=== PATIENT | male | born 1930 | race African-American/Black ===

== ENCOUNTER 2016-09-21 11:09 | Emergency (ER) | payer OTHER ==
--- NOTE | 2016-09-21 11:22 | ED EKG INTERP ---
EKG Interpretation - EKG Time of EKG reading by physician:: 11:16 EKG Read and Signed by:: Armando Noland EKG Interpretation (*Must complete 3 of following elements*): Abnormal Rate: 46 Rhythm: sinus gloria Longton: normal QRS: normal Attestation - Scribe Verification/Attestation Scribe:: Imtiaz Rankin Acting as Scribe for:: Armando Noland Scribe documention review:: This chart was documented by a scribe and accurately reflects the service the provider performed and the decisions made by the provider.
[2016-09-21] MEDS ORDERED: G.I. COCKTAIL PO ONE (11:27)
[2016-09-21] MEDS ORDERED: ASPIRIN PO ONE (11:30)
--- NOTE | 2016-09-21 11:33 | PROVIDER DOCUMENTATION ---
HPI-Chest Pain - General Chief Complaint: Chest Pain Stated Complaint: CHEST PAIN/HIGH BLOOD PRESSURE Time Seen by Provider: 09/21/16 11:11 Source: patient, family Allergies/Adverse Reactions: Patient Allergies Allergy/AdvReac Type Severity Reaction Status Date / Time No Known Allergies Allergy Verified 09/21/16 13:00 Home Medications: Home Medication List Medication Instructions Recorded Confirmed Last Taken Type Azithromycin [Zithromax Z-Darryl] 250 mg PO DIRECTED #1 pkg 09/21/16 Unknown Rx Methylprednisolone [Medrol Dosepak] 4 mg PO DIRECTED #1 package 09/21/16 Unknown Rx Omeprazole 20 mg PO DAILY #14 capsule. 09/21/16 Unknown Rx - History of Present Illness-CP Nature of Presenting Problem: 86 yo BF presented via ambulance iwht onset of CP this morning before breakfast. Sudden onset of moderate SSCP this morning without diaphoresis, palpitations, syncope, SOB. Denies f/c, cough. Location: reports: substernal, central, epigastric Chest Pain Radiation: reports: no radiation Quality of Pain: reports: aching Severity in ED: moderate Onset/Duration: 4-6 hours ago Timing: still present Context/Activities at Onset: reports: none Modifying Factors: improves with: nothing Associated Symptoms: reports: denies symptoms. denies: diaphoresis, dizziness, edema, fever/chills, heartburn, nausea, shortness of breath, syncope, vomiting Prior Chest Pain/Cardiac Workup: reports: no prior chest pain Similar Symptoms Previously?: No Recently Seen Here or By Another Healthcare Provider: No Review of Systems - Adult - REVIEW OF SYSTEMS - ADULT Constitutional: reports: no symptoms reported Eyes: reports: no symptoms reported Ears, Nose, Mouth & Throat: reports: no symptoms reported Cardiovascular: reports: see HPI Respiratory: reports: no symptoms reported Gastrointestinal: reports: no symptoms reported Genitourinary: reports: no symptoms reported Musculoskeletal: reports: no symptoms reported Integumentary: reports: no symptoms reported Neurological: reports: no symptoms reported Psychiatric: reports: no symptoms reported Endocrine: reports: no symptoms reported Hematologic/Lymphatic: reports: no symptoms reported Allergic/Immunologic: reports: no symptoms reported All Other Systems: Reviewed and Negative Past History - Adult - PAST MEDICAL HISTORY-ADULT Review of Records: reports: Old Records Reviewed, Nursing Assessment Review, Medications Reviewed, Social history reviewed & non-contributory. Cardiovascular: reports: HTN Respiratory: reports: denies history Gastrointestinal: reports: denies history Genitourinary: reports: denies history Musculoskeletal: reports: denies history Neurological: reports: denies history Psychiatric: reports: denies history Endocrine/Immune: reports: denies history - FAMILY HISTORY Family History: reviewed, not pertinent - SOCIAL HISTORY Smoking: denies, quit greater than 1 year Substance Use: none/never Alcohol Use Frequency: never Living Situation: family Physical Exam-General - PHYSICAL EXAM-ADULT Initial Vital Signs Reviewed: Yes - CONSTITUTIONAL General Appearance: appears well, alert, no apparent distress - EYES Eyes: PERRL/EOMI - HEAD, EARS, NOSE, MOUTH & THROAT HENMT: normocephalic/atraumatic, moist mucous membranes - NECK Neck: non-tender - RESPIRATORY Respiratory: chest non-tender, rhonchi (RLL, maybe RML), wheezing - CARDIOVASCULAR Cardiovascular: normal peripheral pulses, regular rate, rhythm, no edema - GASTROINTESTINAL (ABDOMEN) Abdominal Exam: non tender, soft - MUSCULOSKELETAL Back Exam: no CVA tenderness, no vertebral tenderness Extremity: no calf tenderness, pedal edema - SKIN Integumentary: normal color, other (multiple SK) - NEUROLOGIC Neurologic: grossly normal - PSYCHIATRIC Psych/Mental Status: normal mood/affect, normal thought content, normal thought process, oriented x 3 Progress - PLAN OF CARE/RESULTS Progress/Plan/Lab Results: Vital Signs Temp Pulse Resp BP Pulse Ox 09/21/16 13:09 62 13 176/69 99 09/21/16 11:22 57 L 22 171/84 98 09/21/16 11:13 98.2 F 51 L 19 172/79 97 No Known Allergies Allergy (Verified 09/21/16 13:00) Home Meds Unobtainable 09/21/16 Laboratory 09/21/16 09/21/16 09/21/16 11:45 11:45 11:45 WBC RBC Hgb Hct MCV MCH MCHC RDW Std Deviation Plt Count MPV Immature Gran % (Auto) Neut % (Auto) Lymph % (Auto) Rabun % (Auto) Eos % (Auto) Baso % (Auto) Immature Gran # (Auto) Neut # (Auto) Lymph # (Auto) Rabun # (Auto) Eos # (Auto) Baso # (Auto) D-Dimer Sodium 134 L Potassium 4.6 Chloride 98 Carbon Dioxide 23 L Anion Gap 13 BUN 13 Creatinine 1.0 Estimated GFR/1.73 m2 > 60 BUN/Creatinine Ratio 13 Glucose 173 H Calculated Osmolality 272 Calcium 10.0 Total Bilirubin 0.58 AST 69 H ALT 76 H Alkaline Phosphatase 71 Creatine Kinase 209 H Creatine Kinase Index 1.4 CK-MB (CK-2) 3.03 Troponin T < 0.010 Dyg-A-Wrlxiirelsv Pept 36 Total Protein 7.5 Albumin 3.9 Globulin 3.6 Albumin/Globulin Ratio 1.1 09/21/16 09/21/16 11:45 11:45 WBC 10.86 H RBC 4.93 Hgb 15.0 Hct 45.1 MCV 91.5 MCH 30.4 MCHC 33.3 RDW Std Deviation 13.9 Plt Count 201 MPV 11.4 H Immature Gran % (Auto) 0.2 Neut % (Auto) 81.9 H Lymph % (Auto) 12.2 L Rabun % (Auto) 5.2 Eos % (Auto) 0.3 Baso % (Auto) 0.2 Immature Gran # (Auto) 0.02 Neut # (Auto) 8.89 H Lymph # (Auto) 1.33 Rabun # (Auto) 0.57 Eos # (Auto) 0.03 Baso # (Auto) 0.02 D-Dimer 0.66 H Sodium Potassium Chloride Carbon Dioxide Anion Gap BUN Creatinine Estimated GFR/1.73 m2 BUN/Creatinine Ratio Glucose Calculated Osmolality Calcium Total Bilirubin AST ALT Alkaline Phosphatase Creatine Kinase Creatine Kinase Index CK-MB (CK-2) Troponin T Zay-Q-Zogldqjzxul Pept Total Protein Albumin Globulin Albumin/Globulin Ratio 1425 Discussed with family and patient. Results explained. Although we did not find x-ray evidence of infection, his lung findings were suggestive of bronchitis. They requested something for gas, and I gave them the names of OTC meds. After GI cocktail and he was able to eat, he felt better. Will also include omeprazole. Family happy and agreed with discharge plan. Also at this time the patient said his pain was actually more in his upper abdoment. He felt it was gas. - CT/MRI 1 CT Study: Thorax Impression: Normal Departure - Departure Time of Disposition Order: 14:46 DIAGNOSIS: Epigastric pain Acute bronchitis Qualifiers: Bronchitis organism: other organism Qualified Code(s): J20.8 - Acute bronchitis due to other specified organisms Disposition: HOME 01 Certified Medical Emergency: Emergent Condition: Stable Additional Instructions: Follow up with Dr. Galeana next week. Note blood sugar. Di-gel, Gaviscon, Mylanta, Phazyme, Gas-X recommended to patient famil Prescriptions: Methylprednisolone [Medrol Dosepak] 4 mg PO DIRECTED #1 package Omeprazole 20 mg PO DAILY #14 capsule. Azithromycin [Zithromax Z-Darryl] 250 mg PO DIRECTED #1 pkg Referrals: Get Galeana MD [Primary Care Provider] - Instructions: Heartburn, Acute Bronchitis
--- NOTE | 2016-09-21 11:55 | EKG Report ---
Test Performed on : 09/21/2016 11:16:27 AM Test Reason : chest pain Blood Pressure : / mmHG Vent. Rate : 046 BPM Atrial Rate : 046 BPM P-R Int : 156 ms QRS Dur : 084 ms QT Int : 446 ms P-R-T Axes : 061 022 032 degrees QTc Int : 390 ms Sinus bradycardia. Otherwise normal ECG When compared with ECG of 28-APR-2016 03:48, Vent. rate has decreased BY 23 BPM QT has shortened Unconfirmed Result
[2016-09-21 12:10] LABS: MANUAL DIFF NEEDED? NO
[2016-09-21 12:16] LABS: BASO% 0.2 % (0.0-0.8); EOS# 0.03 X1000 (0.0-0.7); EOS% 0.3 % (0.0-10.0); HEMATOCRIT 45.1 % (42.0-52.0); IMM GRAN# 0.02 X1000 (0.0-0.04); IMM GRAN% 0.2 % (0.0-0.5); LYMPH# 1.33 X1000 (1.2-3.4); LYMPH% 12.2 % (20.5-51.1); MCH 30.4 PG (27-31); MCHC 33.3 g/dL (33-37); MCV 91.5 FL (81-99); MONO# 0.57 X1000 (0.11-0.59); MONO% 5.2 % (1.7-9.3); MPV 11.4 FL (7.4-10.4); NEUT% 81.9 % (42.2-75.2); PLT 201 X1000 (130-400); RBC 4.93 XMIL (4.7-6.1)
[2016-09-21 12:34] LABS: AGAP 13; ALBUMIN 3.9 g/dL (3.5-5.0); ALKALINE PHOSPHATASE 71 U/L (32-122); BUN 13 mg/dL (8-22); CHLORIDE 98 mmol/L (98-107); COSMO 272; GOT 69 U/L (10-34); GPT 76 U/L (10-44); POTASSIUM 4.6 mmol/L (3.5-5.1); SODIUM 134 mmol/L (136-145); TCO2 23 mmol/L (25-35); TOTAL BILIRUBIN 0.58 mg/dL (0.20-1.00); TOTAL PROTEIN 7.5 g/dL (6.3-8.3)
[2016-09-21 12:37] LABS: CK PROFILE 209 U/L (24-204)
[2016-09-21 13:14] LABS: CK INDEX 1.4 (0.0-2.5); CK-MB 3.03 ng/mL (0.0-5.0)
--- NOTE | 2016-09-21 13:27 | Diag Imaging Result Document ---
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 This was apparently also present on 10/30/2014. Otherwise, there has been no significant change in the appearance of the chest. IMPRESSION: Stable chest.
--- NOTE | 2016-09-21 16:26 | Diag Imaging Result Document ---
PROCEDURE NAME: ANGIOGRAM/PULMONARY ARTERIES - 09/21/2016 CT OF THE CHEST WITH INTRAVENOUS CONTRAST AND CLARITY: FINDINGS: There is no evidence of filling defects in the pulmonary arteries. There are some coronary calcifications. The aorta is not distended or dissected in appearance. There are no abnormal fluid collections. There is no evidence of significant adenopathy. There is no evidence of acute pulmonary parenchymal disease. There is a calcified granuloma in the right middle lobe. IMPRESSION: No evidence of acute disease.
[2016-09-21 17:06] VITALS: BP 178/92
== END 2016-09-21 17:04 | disposition home or self-care (01) ==
LOC: EDBD → ED 11:09
DX: J20.8 Acute bronchitis due to other specified organisms (principal); R10.13 Epigastric pain; R07.2 Precordial pain; I10 Essential (primary) hypertension; Z87.891 Personal history of nicotine dependence; R06.2 Wheezing
CPT/HCPCS: 71020; 71275; 80053; 82550; 82553; 83880; 84484; 85025; 85379; 93005; Q9967

== ENCOUNTER 2018-12-09 14:04 | Inpatient (IN) ==
[2018-12-09] MEDS ORDERED: DESYREL PO PRN (17:30)
[2018-12-09] MEDS: LEVAQUIN 750 MG/D5W 750 MG/150 ML IVPB IV SCH (18:02)
[2018-12-09 18:27] LABS: URINE SOURCE CATH
[2018-12-09 18:33] LABS: BILIRUBIN URINE NEGATIVE (NEGATIVE); BLOOD URINE TRACE (NEGATIVE); COLOR YELLOW; GLUCOSE URINE NEGATIVE (NEGATIVE); KETONE URINE NEGATIVE (NEGATIVE); LEUKOCYTES URINE LARGE (NEGATIVE); NITRITE URINE NEGATIVE (NEGATIVE); PH URINE 5.5; PROTEIN URINE 70 mg/dL (NEGATIVE); SP GRAVITY URINE 1.019; TURBIDITY URINE HAZY (CLEAR); UROBILINOGEN URINE 4 mg/dL (NORMAL)
[2018-12-09 18:34] LABS: UR EPITHELIAL CELLS <10 /HPF (<10); URINE BACTERIA 4+ /HPF; URINE RBC <10 /HPF (<10); URINE WBC TNTC /HPF (<10)
[2018-12-09] MEDS: POTASSIUM CHLORIDE 10 MEQ in 1/2 NS 1,000 ML IV SCH (18:50)
[2018-12-09] MEDS: CARDIZEM PO SCH (20:58)
[2018-12-09] MEDS: ARICEPT PO SCH (20:58)
[2018-12-09] MEDS: DEPAKOTE PO SCH (20:58)
[2018-12-09] MEDS: RISPERDAL PO SCH (20:58)
--- NOTE | 2018-12-09 21:14 | HISTORY AND PHYSICAL ---
HISTORY OF PRESENT ILLNESS: Mr. Weeks, who is a known case of dementia, hypertension, hypothyroidism, and maturity-onset diabetes, was admitted with intermittent high fever. This afternoon, he spiked about 102.5 degree temperature at the [facility], and he has been very drowsy, very difficult to manage. Hence, we decided to admit him. He has dementia with behavioral changes. Recently, he was sent to psychiatric hospital in [place] and was treated for about 7 days for behavioral changes. After he came back, he has been very drowsy, and he is not running any heavy temperature. Once, he was found on the floor. OTHER HISTORY: Other details of personal, past, and family history are noncontributory. ALLERGIES: He is not allergic to medication. SOCIAL HISTORY: He is not a smoker, does not drink. REVIEW OF SYSTEMS: Not available at the present time. PHYSICAL EXAMINATION: GENERAL: At present, he is very stuporous. VITAL SIGNS: Temperature 99.5 degrees Fahrenheit, pulse 50 per minute, respiratory rate 20 per minute, blood pressure 159/50. HEENT: Head normocephalic. Pupils PERRLA. Fundus examination could not be done. Neck supple. JVP normal. ENT examination unremarkable. There is no evidence of lymphadenopathy, thyroid enlargement, pedal edema, calf tenderness, anemia, cyanosis, or clubbing. Pedal pulses well felt. BREAST EXAM: Normal. CHEST: Normal inspection. LUNGS: Clear on auscultation. HEART: PMI in the normal position. Heart sounds normal. No murmur, gallop, or rub noted. ABDOMEN: Nondistended. Hernial orifices normal. No guarding, rigidity, free fluid, masses, or organomegaly. Bowel sounds normal. RECTAL: Deferred. CENTRAL NERVOUS SYSTEM: Higher functions: The patient is stuporous. Cranial nerves: Grossly normal. Motor and sensory system examination reveals normal tone. He moves his extremities. Deep tendon reflexes sluggish. Plantars downgoing. Skull and spine examination normal for age. No neck stiffness noted. No cerebellar signs. LOCOMOTOR: Unremarkable. SKIN: Unremarkable. CLINICAL IMPRESSION: High fever. The patient is obtunded, partly because of dementia, partly because of medications. PLAN: Get the blood cultures and appropriate urine culture and then start antibiotics. cc: Get Galeana MD
[2018-12-09] MEDS: PATIENT'S OWN MED PO SCH (21:48)
[2018-12-10] MEDS: SYNTHROID PO SCH (06:31)
[2018-12-10] MEDS: POTASSIUM CHLORIDE 10 MEQ in 1/2 NS 1,000 ML IV SCH ×2 (06:32→09:00)
[2018-12-10] MEDS: TYLENOL PO PRN ×2 (06:57→22:33)
[2018-12-10 07:39] LABS: BASO# 0.02 X1000 (0.0-0.2); BASO% 0.2 % (0.0-0.8); EOS# 0.24 X1000 (0.0-0.7); EOS% 2.1 % (0.0-10.0); HEMATOCRIT 36.6 % (42.0-52.0); HEMOGLOBIN 11.5 g/dL (14.0-18.0); LYMPH# 0.82 X1000 (1.2-3.4); LYMPH% 7.3 % (20.5-51.1); MCH 30.7 PG (27-31); MCHC 31.4 g/dL (33-37); MCV 97.9 FL (81-99); MONO# 1.59 X1000 (0.11-0.59); MONO% 14.1 % (1.7-9.3); MPV 10.9 FL (7.4-10.4); NEUT# 8.61 X1000 (1.4-6.5); NEUT% 76.3 % (42.2-75.2); PLT 188 X1000 (130-400); RBC 3.74 XMIL (4.7-6.1); RDW 14.2 % (11.5-14.5); WBC 11.28 X1000 (4.8-10.8)
[2018-12-10] MEDS: VITAMIN B-12 SL SCH (07:59)
[2018-12-10] MEDS: RISPERDAL PO SCH ×2 (07:59→22:33)
[2018-12-10] MEDS: ASPIRIN EC PO SCH (07:59)
[2018-12-10] MEDS: KLOR-CON PO SCH (07:59)
[2018-12-10] MEDS: DEPAKOTE PO SCH ×2 (07:59→22:33)
[2018-12-10] MEDS: CARDIZEM PO SCH ×2 (07:59→22:33)
[2018-12-10] MEDS: PATIENT'S OWN MED PO SCH (08:00)
[2018-12-10 08:01] LABS: AGAP 9; ALB/GLOB RATIO 0.7; ALBUMIN 2.9 g/dL (3.5-5.0); ALKALINE PHOSPHATASE 61 U/L (32-122); BUN 25 mg/dL (8-22); CALCIUM 9.6 mg/dL (8.8-10.2); CHLORIDE 104 mmol/L (98-107); COSMO 281; ESTIMATED GFR > 60; GLUCOSE 118 mg/dL (70-104); GOT 19 U/L (10-34); GPT 17 U/L (10-44); POTASSIUM 4.6 mmol/L (3.5-5.1); SODIUM 138 mmol/L (136-145); TCO2 25 mmol/L (25-35); TOTAL BILIRUBIN 0.59 mg/dL (0.20-1.00)
--- NOTE | 2018-12-10 08:07 | EKG Report ---
Test Performed on : 12/10/2018 06:12:09 AM Test Reason : CP Blood Pressure : / mmHG Vent. Rate : 066 BPM Atrial Rate : 066 BPM P-R Int : 144 ms QRS Dur : 084 ms QT Int : 404 ms P-R-T Axes : 068 039 046 degrees QTc Int : 423 ms Normal sinus rhythm. Possible Left atrial enlargement Left ventricular hypertrophy Abnormal ECG When compared with ECG of 24-SEP-2018 12:05, aberrant conduction. is no longer present QT has shortened Confirmed by Benedict MCKENZIE, Hans Victor ([id number]) on 12/10/2018 10:23:42 AM
--- NOTE | 2018-12-10 09:37 | PROGRESS NOTE ---
DATE: 12/10/2018 Mr. Yeh has some leukocytosis. Seems like he has a urinary tract infection. He had 100.5 degree fever yesterday. Overall condition is improving. He is more alert. He is eating by oral. We will continue with the current management. -0 cc: Get Galeana MD
--- NOTE | 2018-12-10 11:34 | Diag Imaging Result Doc PS360 ---
EXAM: CHEST-2 VIEWS INDICATION: fever TECHNIQUE: 2 views COMPARISON: 09/24/2018 FINDINGS: There is mild elevation of the right hemidiaphragm. The lungs are grossly clear. There is no discrete pleural fluid collection or pneumothorax. The cardiac silhouette is borderline prominent but stable. Central vasculature is unremarkable. Borderline prominent heart. No definite acute pathology by plain radiograph. IMPRESSION: No evidence of acute pathology by plain radiograph. Electronically signed by Kenneth Cortez 12/10/2018 11:32 AM
[2018-12-10] MEDS: LEVAQUIN 750 MG/D5W 750 MG/150 ML IVPB IV SCH (16:38)
[2018-12-10] MEDS: ARICEPT PO SCH (22:33)
[2018-12-11] MEDS: POTASSIUM CHLORIDE 10 MEQ in 1/2 NS 1,000 ML IV SCH ×2 (04:11→17:37)
[2018-12-11] MEDS: PATIENT'S OWN MED PO SCH ×3 (04:11→21:58)
[2018-12-11] MEDS: SYNTHROID PO SCH (06:41)
[2018-12-11] MEDS: TYLENOL PO PRN (06:41)
[2018-12-11] MEDS: DEPAKOTE PO SCH ×2 (08:21→21:57)
[2018-12-11] MEDS: ASPIRIN EC PO SCH (08:21)
[2018-12-11] MEDS: RISPERDAL PO SCH ×2 (08:21→21:56)
[2018-12-11] MEDS: CARDIZEM PO SCH ×2 (08:22→21:56)
[2018-12-11] MEDS: KLOR-CON PO SCH (08:22)
[2018-12-11] MEDS: VITAMIN B-12 SL SCH (08:22)
--- NOTE | 2018-12-11 11:21 | PROGRESS NOTE ---
DATE: 12/11/2018 Mr. Yeh is afebrile. Yesterday, he had about a 100 degree temperature. He has a urinary tract infection, with gram-negative rods. Chest x-ray was unremarkable. It looks like he is somewhat depressed today. He did not eat today. Overall condition is otherwise unchanged. He has intermittent dementia. -0 cc: Get Galeana MD
[2018-12-11] MEDS: LEVAQUIN 750 MG/D5W 750 MG/150 ML IVPB IV SCH (17:36)
[2018-12-11] MEDS: ARICEPT PO SCH (21:57)
[2018-12-12] MEDS: SYNTHROID PO SCH (06:21)
[2018-12-12] MEDS: POTASSIUM CHLORIDE 10 MEQ in 1/2 NS 1,000 ML IV SCH (06:24)
[2018-12-12] MEDS: CARDIZEM PO SCH (08:13)
[2018-12-12] MEDS: KLOR-CON PO SCH (08:13)
[2018-12-12] MEDS: VITAMIN B-12 SL SCH (08:13)
[2018-12-12] MEDS: ASPIRIN EC PO SCH (08:13)
[2018-12-12] MEDS: DEPAKOTE PO SCH (08:13)
[2018-12-12] MEDS: RISPERDAL PO SCH (08:14)
[2018-12-12] MEDS: PATIENT'S OWN MED PO SCH (08:14)
--- NOTE | 2018-12-12 13:23 | PROGRESS NOTE ---
DATE: 12/12/2018 The patient has E. Coli isolated in the urine. He is doing better. Chest x-ray is negative. He is afebrile. We are going to discharge him back to [facility]. -7 cc: Get Galeana MD
--- NOTE | 2018-12-12 13:47 | DISCHARGE SUMMARY ---
ADMISSION DATE: 12/09/2018 DISCHARGE DATE: 12/12/2018 HOSPITAL COURSE: Mr. Yeh is an 88-year-old gentleman who was hospitalized because of high fever. He had dementia. LABORATORY DATA: In the hospital, EKG revealed normal sinus rhythm, possible left atrial enlargement. Left ventricular hypertrophy was also noted. Chest x-ray did not show any evidence of acute pathology. Urinalysis revealed too numerous WBCs and urine culture grew E coli sensitive to Levaquin. He will be discharged today with Levaquin. He was given IV fluids also. He is feeling much better. FINAL DIAGNOSES: 1. Escherichia coli urinary tract infection. 2. Dementia. 3. Diabetes. 4. Hypothyroidism. cc: Get Galeana MD
[2018-12-12 15:10] VITALS: BP 139/62
== END 2018-12-12 16:44 | DRG 690 ==
LOC: DIRADM 14:04 → 3N 14:59
PROVIDERS: ADMIT Internal Medicine; ATTEND Internal Medicine
CPT/HCPCS: 71020; 71046; 80053; 81001; 85025; 87040; 87077; 87088; 87186; 93005; 93010; A9270; J1956; J3480